=== PATIENT | female | born 1970 | race Hispanic/Latino ===

== ENCOUNTER 2016-12-30 09:41 | Outpatient (CLI) | payer OTHER ==
[~2016-12-30] VITALS: Ht 144.8 cm; Wt 75.7 kg
[~2016-12-30 09:41] MED LIST: CIPR500T78 PO; FERR-57 PO; IBUP-1773 PO; MDR10T PO; PANT40TA2 PO; SUCR1TAB36 PO
--- OUTSIDE RECORDS SUMMARY | 2016-12-30 09:45 | XMS REPORT | Continuity of Care Document ---
Author Author [facility] Organization [facility] Address Unknown Phone Unavailable Care Team Providers Care Harvesting Contractor Name Role Phone PCP Unavailable Source Comments Some departments are not documenting in the electronic medical record. If you do not see the information that you expected, contact Release of Information in the Health Information Management department at [phone] for further assistance in locating additional records.[facility] Active Allergies and Adverse Reactions Not on File Current Medications Not on file Active Problems Not on file Social History Tobacco Use Types Packs/Day Years Used Date Never Assessed Plan of Care Health Maintenance Due Date Last Done Comments Physical (Comprehensive) 1975 Exam Pertussis Vaccine 1979 Tetanus Vaccine 1985 Cervical Cancer Screening 1989 Breast Cancer Screening 2008 Influenza Vaccine 06/24/2016 Results from Last 3 Months Not on file
[2016-12-30 09:58] VITALS: BP 114/68
[2016-12-30] MEDS ORDERED: GABA-488 PO (09:58)
[2016-12-30] MEDS ORDERED: CHOL100045 PO (09:58)
[2016-12-30 10:29] LABS: BASOPHILS % (AUTO) 0 % (0-10); EOSINOPHILS # (AUTO) 0.1 10^3/uL (0.0-0.3); EOSINOPHILS % (AUTO) 2 % (0-10); LYMPHOCYTES # (AUTO) 2.1 X 10^3 (1.0-4.0); LYMPHOCYTES % (AUTO) 28 % (12-44); MEAN CORPUSCULAR HEMOGLOBIN 32 PG (25-34); MEAN CORPUSCULAR HGB CONC 33 G/DL (32-36); MEAN CORPUSCULAR VOLUME 95 FL (80-99); MONOCYTES # (AUTO) 0.6 X 10^3 (0.0-1.0); MONOCYTES % (AUTO) 8 % (0-12); NEUTROPHILS # (AUTO) 4.7 X 10^3 (1.8-7.8); NEUTROPHILS % (AUTO) 62 % (42-75); PLATELET COUNT 338 10^3/uL (130-400); RED BLOOD COUNT 4.33 10^6/uL (4.35-5.85); RED CELL DISTRIBUTION WIDTH 13.3 % (10.0-14.5); WHITE BLOOD COUNT 7.5 10^3/uL (4.3-11.0)
[2017-01-06] MEDS ORDERED: IBUP-1773 PO (11:04)
[2017-01-06] MEDS ORDERED: DOCU100C37 PO (11:04)
[2017-01-06] MEDS ORDERED: HYDR-3816 PO (11:04)
[2017-01-06] MEDS ORDERED: SIME80TA16 PO (11:04)
== END 2016-12-30 10:15 | disposition home or self-care (01) ==
LOC: PREOP 09:41
PROVIDERS: ATTEND Obstetrics & Gynecology
DX: Z01.812 Encounter for preprocedural laboratory examination (principal); Z11.2 Encounter for screening for other bacterial diseases; D25.9 Leiomyoma of uterus, unspecified
CPT/HCPCS: 36415; 85025; 86850; 86900; 86901; 87081

== ENCOUNTER 2017-01-06 06:58 | Day surgery (SDC) | payer OTHER ==
[~2017-01-06] VITALS: Ht 144.8 cm; Wt 75.7 kg
[~2017-01-06 06:58] MED LIST changes: +CHOL100045 PO; +GABA-488 PO
--- OUTSIDE RECORDS SUMMARY | 2017-01-06 07:02 | XMS REPORT | Continuity of Care Document ---
Author Author [facility] Organization [facility] Address Unknown Phone Unavailable Care Team Providers Care Capping Machine Operator Name Role Phone PCP Unavailable Source Comments Some departments are not documenting in the electronic medical record. If you do not see the information that you expected, contact Release of Information in the Health Information Management department at [phone] for further assistance in locating additional records.[facility] Active Allergies and Adverse Reactions Not [...]
--- OUTSIDE RECORDS SUMMARY | 2017-01-06 07:02 | XMS REPORT | Continuity of Care Document ---
Author Author [facility] Organization [facility] Address Unknown Phone Unavailable Care Team Providers Care Reciprocating Drill Operator Name Role Phone PCP Unavailable Source Comments Some departments are not documenting in the electronic medical record. If you do not see the information that you expected, contact Release of Information in the Health Information Management department at [phone] for further assistance in locating additional records.[facility] Active Allergies and Adverse Reactions Not [...]
[2017-01-06] MEDS ORDERED: ceFAZolin 2 GM/50 ML NS 50 ML IV ONE (07:20)
[2017-01-06] MEDS ORDERED: metroNIDAZOLE 500MG/100ML IVPB 100 ML ONE (07:20)
[2017-01-06] MEDS ORDERED: BUPIVACAINE 0.25% 30 ML (SENSORCAINE) VIAL ONE (07:28)
[2017-01-06] MEDS ORDERED: ceFAZolin 2 GM/NS 50 ML IV ONE (07:45)
[2017-01-06] MEDS ORDERED: metroNIDAZOLE 500 MG/100 ML IVPB (PRE-MIX) IV ONE (07:45)
[2017-01-06 08:00] VITALS: BP 104/70
--- NOTE | 2017-01-06 08:13 | Progress Note-Pre Operative ---
Pre-Operative Progress Note H&P Reviewed The H&P was reviewed, patient examined and no changes noted. Date H&P Reviewed: Jan 06, 2017 Time H&P Reviewed: 07:30 Pre-Operative Diagnosis: AUB, Fibroid uterus CLAUDE TOLBERT DO Jan 06, 2017 8:13 am
[2017-01-06] MEDS ORDERED: proPOfol 200 MG/20 ML (DIPRIVAN) VIAL IV ONE (08:45)
[2017-01-06] MEDS ORDERED: LIDOCAINE PF 2% 10 ML (XYLOCAINE) AMP INJ ONE (08:45)
[2017-01-06] MEDS ORDERED: SEVOFLURANE (ULTANE) 15 ML INHAL SOLN INH ONE ×7 (08:45→10:31)
[2017-01-06] MEDS ORDERED: ONDANSETRON 4 MG/2 ML (SDV) Z0FRAN IV ONE ×2 (08:45→11:00)
[2017-01-06] MEDS ORDERED: DEXAMETHASONE PF 10 MG/ML (DECADRON) VIAL INJ ONE (08:45)
[2017-01-06] MEDS ORDERED: fentaNYL INJECTION 250 MCG/5 ML AMP INJ ONE (08:45)
[2017-01-06] MEDS ORDERED: MIDAZOLAM 2 MG/2 ML (VERSED) VIAL INJ ONE (08:46)
[2017-01-06] MEDS ORDERED: LACTATED RINGERS 1,000 ML IV ONE ×3 (08:49→10:15)
[2017-01-06] MEDS: LACTATED RINGERS 1,000 ML IV PRN ×3 (08:53→10:38)
[2017-01-06] MEDS ORDERED: KETOROLAC 30 MG/ML VIAL IV ONE ×2 (10:15→12:27)
[2017-01-06] MEDS ORDERED: NEOSTIGMINE (BLOXIVERZ ) 1 MG/1ML 10 ML VIAL IV ONE (10:15)
[2017-01-06] MEDS ORDERED: GLYCOPYRROLATE 0.2 MG/ML (ROBINUL) 2 ML VIAL IJ ONE (10:15)
[2017-01-06] MEDS ORDERED: HYDROmorphone (DILAUDID) 2 MG/ML VIAL IV PRN (11:00)
[2017-01-06] MEDS ORDERED: ANTACID SUSP 30 ML UDC (MYLANTA) PO PRN (11:00)
[2017-01-06] MEDS ORDERED: DOCUSATE SODIUM 100 MG (COLACE) CAP PO PRN (11:00)
[2017-01-06] MEDS ORDERED: SIMETHICONE 80 MG (MYLICON) CHEW PO PRN (11:00)
[2017-01-06] MEDS ORDERED: KETOROLAC 30 MG/ML VIAL IV PRN (11:00)
[2017-01-06] MEDS ORDERED: ONDANSETRON 4 MG/2 ML (SDV) Z0FRAN IV PRN (11:00)
[2017-01-06] MEDS ORDERED: CHLORASEPTIC LOZENGE MM PRN (11:00)
[2017-01-06] MEDS ORDERED: morphine INJ 10 MG/ML 1ML (SYR OR VIAL) IV PRN (11:00)
[2017-01-06] MEDS ORDERED: ZOLPIDEM 5 MG (AMBIEN) TAB PO PRN (11:00)
--- NOTE | 2017-01-06 11:03 | Discharge Inst-Women's Service ---
Discharge Inst-Women's Serv Depart Medication/Instructions New, Converted or Re-Newed RX: RX on Chart Consults/Follow Up Additional Follow Up: Yes Orders/Referrals Dr. Dupree in 7-10 days and in 8 weeks Activity Activity: Activity as Tolerated Driving Instructions: No Driving for 1 Week NO SMOKING: NO SMOKING Nothing Inside Vagina: No Douching, No [place], No Tampons Diet Discharge Diet: No Restrictions Symptoms to Report to : Bleeding Excessive, Pain Increased, Fever Over 101 Degrees F, Vaginal Bleeding Increase, Questions/Concerns For Any Problems or Questions: Contact Your Physician Skin/Wound Care Infection Signs and Symptoms: Increased Redness, Foul Odor of Wound, Increased Drainage, Skin Itchy or Has a Rash, Increased Swelling, Temperature Above 101 F Operative Area Clean and Dry: Keep Incision Clean/Dry Stitches/Dylan/Dermabond: Dermabond, Care of Stitches Bathing Instructions: CLAUDE Freeman DO Jan 06, 2017 11:03
[2017-01-06] MEDS ORDERED: DOCU100C37 PO (11:04)
[2017-01-06] MEDS ORDERED: HYDR-3816 PO (11:04)
[2017-01-06] MEDS ORDERED: SIME80TA16 PO (11:04)
[2017-01-06] MEDS ORDERED: IBUP-1773 PO (11:04)
[2017-01-06] MEDS: fentaNYL INJECTION 100 MCG/2 ML AMP IV PRN ×2 (11:30→11:40)
[2017-01-06] MEDS ORDERED: fentaNYL INJECTION 100 MCG/2 ML AMP INJ ONE (11:38)
[2017-01-06 12:46] VITALS: BP 99/63
--- NOTE | 2017-01-06 13:39 | OPERATIVE REPORT ---
PROCEDURE PHYSICIAN: GOMEZ TOLBERT DATE OF PROCEDURE: 01/06/2017 PREOPERATIVE DIAGNOSIS: 1. 46-year-old female fibroid uterus. 2. Abnormal uterine bleeding. POSTOPERATIVE DIAGNOSIS: 1. 46-year-old female fibroid uterus. 2. Abnormal uterine bleeding. PROCEDURE: Robotic total laparoscopic hysterectomy with bilateral salpingo- salpingectomy. SURGEON: Dr. Gomez Tolbert. SCHOOL PHOTOGRAPH EDITOR: Olivia Cruz APRN ANESTHESIA: General endotracheal. ESTIMATED BLOOD LOSS: 100 mL. URINE OUTPUT: 200 mL, clear at the end of the procedure. FLUIDS: 2 liters of lactated ringer solution. FINDINGS: Slightly bulky enlarged and hyperemic appearing uterus. Grossly normal appearing bilateral fallopian tubes with hydatid cyst present in the mesosalpinx. Normal appearing ovaries bilaterally. SPECIMEN SENT: Uterus, bilateral fallopian tubes. INDICATIONS FOR THE PROCEDURE: This 46-year-old female is a patient that I had seen in the past and tried more conservative management for dealing with her chronic issues with heavy irregular bleeding. The patient has become frustrated with this and wishes to proceed with more definitive measures. I discussed with the patient, given her history and what we have tried before with her fibroid uterus, what we can do moving forward with as far as treatment. We discussed endometrial ablation, however the patient does not like the fact that this may not be successful due to the possibility of submucosal fibroids being present and distorting the uterine cavity. The failure rate is not acceptable to the patient. I also discussed with the patient proceeding with robotic hysterectomy. Risks of the procedure were discussed with the patient in detail including risk of bleeding, infection, damaging any surrounding structures, including not limited to the bowel, bladder, ureter, kidneys. After all of her questions were answered pertaining to this, she agreed this is the best route for her to go. We also do briefly mention some medical management options. However, these do not appeal to her. After all of her questions were answered as far as risk expectations, pre and postoperative expectations, the patient is scheduled for the procedure. In the preoperative area, the consent was obtained and patient was taken the operating room. OPERATIVE REPORT IN DETAIL: Once in the operating room, general anesthesia was found to be adequate. She was placed in dorsal lithotomy position, prepped in normal sterile fashion. Harper catheter is placed using sterile technique. A timeout is performed. I then placed a weighted speculum in the patient's vagina. A right angle retractor is used to visualize the cervix. It was grasped at the 12 o'clock position using long single tooth tenaculum. I then place an 0 Vicryl suture through the anterior lip of the cervix and removed my tenaculum and used the suture as my retraction point. I then gently sound the uterine cavity depth which was found to be 8 cm I then select an 8 cm CORAL uterine manipulator tip and a 3.5 cm colpotomy ring. Once this is placed in the endometrial cavity the balloon is deployed the colpotomy ring is advance around the vaginal fornix and excellent bimanual manipulation is noted on bimanual exam using the CORAL. A change of gloves is then performed and my attention was taken to the abdomen where supraumbilically I infiltrate this area using her 0.25% Marcaine and make an 8 mm incision and then directed Veress needle through this incision so retroperitoneal placement is confirmed using saline drop test. I proceed with insufflation using CO2 gas. An opening pressure of 8 mmHg is noted. I proceed to maximum pressure of 15 mmHg at which point I remove the Veress needle, introduce an 8 mm blunt da Crissy camera trocar. Once this is placed in the peritoneal cavity and I am able to confirm intraperitoneal placement using the da Crissy laparoscope. There is no evidence of damage upon my entry site. I then placed the patient in steep Trendelenburg and I am able to visualize the pelvic anatomy as described in my findings above. I place 2 lateral trocars, these are both 8 mm. The skin is infiltrated with 0.25% Marcaine. 8 mm incision made the knife and the trocars are advanced through the abdominal wall into the peritoneal cavity under direct visualization of the laparoscope. Once these are both in place, I bring in the da Crissy robot and dock it in the appropriate fashion. I place the monopolar hugh in the right hand and the da Crissy vessel sealer in the left hand. I perform the following dissection bilaterally using the robot as my dissection tool. Starting at the utero-ovarian ligament, I bipolar cauterize this using the vessel sealer and transect it using the vessel sealer. I then create a window in the mesosalpinx using the monopolar hugh and take this incision using the vessel sealer down the mesosalpinx, amputating away from its blood supply. I then grasp the round ligament, bipolar cauterize this and transect it using the vessel sealer. I then am able to grab the entire broad ligament, bipolar cauterizing and transecting it using the vessel sealer down to the level of the lower uterine segment at which point I separate the anterior posterior leaflets of the broad ligament. The anterior is taken around to the anterior vaginal fornix, posterior leaflet is taken around to the posterior vaginal fornix. This is done using the monopolar hugh. This allows me to skeletonize out the uterine vessels laterally. Once they are skeletonized, I bipolar cauterize and transect them using the da Crissy vessel sealer. I then have a circumferential view of my colpotomy ring. I perform a colpotomy at 12 o'clock position using monopolar hugh until the CORAL uterine manipulator colpotomy ring is visualized. I then take my incision circumferentially around the colpotomy ring using the monopolar hugh, amputating the cervix away from the vagina. The cervix, uterus, bilateral fallopian tubes are then removed through the vagina. I then proceed with closing the vaginal cuff. I close the lateral vaginal apices of the cuff using 2-0 Vicryl suture in a ivqbla-jz-veblz colposuspending fashion to the uterosacral ligament. Once both of these sutures are in place, I close the remainder middle portion of the cuff using 2-0 V-Loc in a running fashion. There is no active bleeding noted from any my dissection planes at that point. I undock the da Crissy robot and proceed with the remainder case laparoscopically. I copiously irrigate the pelvis using normal saline. Once again, no active bleeding is noted from any my dissection planes. I then place FloSeal hemostatic agent over my planes of dissection to ensure postoperative hemostasis. Once this is done, the patient is flattened out and 10 mL 0.25% Marcaine are introduced into the supraumbilical trocar site. I then remove the lateral trocars under direct visualization of the laparoscope. No active bleeding is noted from these. The supraumbilical trocar site is then removed after insufflation is released from the site. I then close the skin incisions using 4-0 Monocryl in an interrupted subcuticular stitches. Dermabond is applied to the incision. Band-Aids are placed over these. Harper catheter was left in place. The patient tolerated the procedure well and was taken to recovery area in stable condition. Lap and sponge counts correct at the end of the procedure, instrument count is correct as well. 2 grams of Ancef and 500 mg Flagyl given preoperatively for infection prophylaxis. Job ID: [id number] Dictated Date: 01/06/2017 11:44:50 Agricultural Agent Date: 01/06/2017 13:17:39 / aristides
[2017-01-06] MEDS: HYDROcodone/APAP 7.5 MG/325 MG (LORTAB, LORCET PLUS) TABLET PO PRN ×2 (14:07→21:01)
[2017-01-06 15:42] VITALS: BP 101/60
[2017-01-06] MEDS: LACTATED RINGERS 1,000 ML IV SCH (17:53)
[2017-01-06 20:00] VITALS: BP 93/53
[2017-01-06] MEDS ORDERED: IBUPROFEN 600 MG (MOTRIN) TAB PO ONE (20:54)
[2017-01-06] MEDS: IBUPROFEN 600 MG (MOTRIN) TAB PO PRN (21:01)
[2017-01-07] VITALS: BP 105/61
[2017-01-07] MEDS: IBUPROFEN 600 MG (MOTRIN) TAB PO PRN ×2 (02:38→07:57)
[2017-01-07] MEDS: LACTATED RINGERS 1,000 ML IV SCH ×2 (03:00→03:01)
[2017-01-07 04:15] VITALS: BP 77/47
[2017-01-07 07:59] VITALS: BP 93/54
--- NOTE | 2017-01-07 08:01 | Progress Note-Standard ---
Standard Progress Note Progress Notes/Assess & Plan Date Seen 01/07/17 Assess & Plan/Chief Complaint POD#1 Pt denies complaints Has ambulated Voided Pain controlled, minimal abdominal tenderness Ate some last night Vital Sign - Last 12Hours 01/07/17 01/07/17 00:00 04:15 Temp 98.8 98.2 Pulse 84 62 Resp 16 17 B/P 105/61 77/47 Pulse Ox 95 100 O2 Delivery Room Air Room Air Intake and Output 01/07/17 00:00 Intake Total 1930 ml Output Total 900 ml Balance 1030 ml Gen NAD Abd soft nttp lap sites c/d/i covered with dermabond no new labs A/P 46 y/o s/p RATLH/BSO by Dr. Dupree POD#1 Routine post-op care May d/c once meeting all criteria Slightly hypotensive but this was during sleeping - pulse normal D/c as per Dr. Dupree's instructions and f/u as scheduled PHILIP SILVA MD Jan 07, 2017 08:01
[2017-01-07] MEDS ORDERED: FLU TRIvalent (5 YOA+) 2016-17 (AFLURIA) 0.5 ML IM ONE ×2 (09:26→10:00)
--- NOTE | 2017-01-07 10:28 | Anesthesia-General Post-Op ---
General Patient Condition Mental Status/LOC: Same as Preop Cardiovascular: Satisfactory Nausea/Vomiting: Absent Respiratory: Satisfactory Pain: Controlled Complications: Absent Post Op Complications Complications None Follow Up Care/Instructions Patient Instructions None needed. Anesthesia/Patient Condition Patient Condition Patient is doing well, no complaints, stable vital signs, no apparent adverse anesthesia problems. No complications reported per nursing. ONELIA ROSS CRNA Jan 07, 2017 10:28
== END 2017-01-07 11:34 | disposition home or self-care (01) ==
LOC: SDC 06:58 → WS 12:30 → 3RD 15:36 → SDC 01-07 11:34
PROVIDERS: ATTEND Obstetrics & Gynecology
DX: N93.9 Abnormal uterine and vaginal bleeding, unspecified (principal); N83.8 Other noninflammatory disorders of ovary, fallopian tube and broad ligament; D25.1 Intramural leiomyoma of uterus; D25.2 Subserosal leiomyoma of uterus; N70.11 Chronic salpingitis; Z23 Encounter for immunization
CPT/HCPCS: 84703; 88307; 90471; 94664; 96361; 96375

== ENCOUNTER → 2017-05-19 | Outpatient (CLI) | payer SELFPAY ==
[~2017-05-19] VITALS: Ht 144.8 cm; Wt 76.2 kg
[~2017-05-19] MED LIST changes: +CATHETER FLUSH 10 ML SYR IV PRN; +DOCU100C37 PO; +HYDR-3816 PO; +REGADENOSON 0.4 MG/5 ML SYR (LEXISCAN) IV ONE; +SIME80TA16 PO
[2017-05-19 09:22] VITALS: BP 120/87
[2017-05-19 09:29] VITALS: BP 126/80
[2017-05-19 09:30] VITALS: BP 123/80
[2017-05-19 09:32] VITALS: BP 123/80
== END ==
LOC: CARD 07:50
PROVIDERS: ATTEND Nurse Practitioner Family
DX: E78.5 Hyperlipidemia, unspecified (principal)
CPT/HCPCS: 78452; 93017

== ENCOUNTER → 2017-05-23 | Outpatient (CLI) | payer OTHER ==
[~2017-05-23] MED LIST changes: -CATHETER FLUSH 10 ML SYR IV PRN; -REGADENOSON 0.4 MG/5 ML SYR (LEXISCAN) IV ONE
== END ==
LOC: CARD 12:47
PROVIDERS: ATTEND Nurse Practitioner Family
DX: E78.5 Hyperlipidemia, unspecified (principal)
CPT/HCPCS: 93306

== ENCOUNTER 2018-03-05 08:18 | Emergency (ER) | payer SELFPAY ==
[~2018-03-05] VITALS: Ht 144.8 cm; Wt 71.7 kg
[~2018-03-05 08:18] MED LIST changes: +HYDR-34 PO; -HYDR-3816 PO
--- OUTSIDE RECORDS SUMMARY | 2018-03-05 08:25 | XMS REPORT | Clinical Summary ---
Author Author [facility] Organization [facility] Address Unknown Phone Unavailable Care Team Providers Care Chefs Name Role Phone PCP Unavailable Source Comments Some departments are not documenting in the electronic medical record. If you do not see the information that you expected, contact Release of Information in the Health Information Management department at [phone] for further assistance in locating additional records.[facility] Allergies Not on File Current Medications Not on file Active Problems Not on file Social History Tobacco Use Types Packs/Day Years Used Date Never Assessed Sex Assigned at Date Recorded Not on file Last Filed Vital Signs Not on file Plan of Treatment Health Maintenance Due Date Last Done Comments PHYSICAL (COMPREHENSIVE) 1975 EXAM PERTUSSIS VACCINE 1979 HIV SCREENING 1983 TETANUS VACCINE 1985 CERVICAL CANCER SCREENING 1998 BREAST CANCER SCREENING 2008 INFLUENZA VACCINE 07/24/2018 Results Not on filefrom Last 3 Months
[2018-03-05] MEDS ORDERED: methylPREDNISolone 80 MG/ML (DEPO MEDROL) VIAL IJ ONE (08:45)
[2018-03-05] MEDS ORDERED: KETOROLAC 30 MG/ML VIAL IM ONE (08:45)
[2018-03-05] MEDS ORDERED: BUPIVACAINE 0.5% 30 ML (SENSORCAINE) VIAL INJ ONE (08:45)
[2018-03-05] MEDS ORDERED: LIDOCAINE 1% INJ 50 ML (XYLOCAINE) VIAL IJ ONE (08:45)
--- NOTE | 2018-03-05 08:51 | ED Back Pain ---
General Stated Complaint: BACK PAIN, L LEG PAIN Source of Information: Patient Exam Limitations: Language Barrier (Bulgarian language line used) History of Present Illness Date Seen by Provider: March 05, 2018 Time Seen by Provider: 08:36 Initial Comments The patient presents to the ER by private conveyance with her significant other and a chief complaint of left lower back pain radiating down her left buttock and thigh posteriorly. This pain is starting about 2-3 days ago progressively worsening. She has not done anything that aggravate her that she is aware of and denies any history of trauma. She denies any fevers or chills, cough, shortness of breath, dysuria, discharge. She's not having any saddle anesthesia , incontinence of bowel or bladder. She does have a history of diabetes but does not take any medications for because she was told that her A1c was so low. She is not using routine NSAIDs but she is using some aqws-usp-arqrfag pain reliever Tylenol. Allergies and Home Medications Allergies Coded Allergies: No Known Drug Allergies (Verified , 01/06/17) Home Medications Cholecalciferol (Vitamin D3) 1,000 Unit Tablet, 1,000 UNIT PO DAILY, (Reported) Docusate Sodium 100 Mg Capsule, 100 MG PO BID PRN for CONSTIPATION Prescribed by: CLAUDE TOLBERT on 01/06/17 1104 Hydrocodone Bit/Acetaminophen 1 Each Tablet, 1-2 EA PO Q6H PRN for PAIN Prescribed by: CLAUDE TOLBERT on 01/06/17 1104 Ibuprofen 600 Mg Tablet, 600 MG PO Q6H PRN for PAIN Prescribed by: CLAUDE TOLBERT on 01/06/17 1104 Simethicone 80 Mg Tab.chew, 40 MG PO TID PRN for INDIGESTION Prescribed by: CLAUDE TOLBERT on 01/06/17 1104 Patient Home Medication List Home Medication List Reviewed: Yes Constitutional: No chills, No diaphoresis EENTM: No hearing loss, No ear pain Respiratory: No cough, No short of breath Cardiovascular: No chest pain, No edema Gastrointestinal: No abdominal pain, No constipation, No diarrhea, No nausea, No vomiting Genitourinary: No discharge, No dysuria : No (hysterectomy) Control/STD Prophylaxis: Other (hysto) Musculoskeletal: see HPI, back pain Skin: No pruritus, No rash Psychiatric/Neurological: Denies Headache, Denies Numbness; Paresthesia (left thigh) Past Wzjxfcl-Lcvnmh-Pjojoi Hx Patient Social History Recent Foreign Travel: No Contact w/Someone Who Travel: No Recent Hopitalizations: No Immunizations Up To Date Tetanus Booster (TDap): Unknown Date of Influenza Vaccine: Jan 07, 2017 Seasonal Allergies Seasonal Allergies: No Past Medical History Reproductive Disorders: Yes (AUB) Loss of Vision: Denies Hearing Impairment: Denies Physical Exam Vital Signs Capillary Refill : General Appearance: No Apparent Distress, WD/WN HEENT: PERRL/EOMI, Pharynx Normal Neck: Full Range of Motion, Normal Inspection, Non Tender Cardiovascular: Regular Rate, Rhythm, No Edema, Normal Peripheral Pulses Respiratory: Chest Non Tender, Lungs Clear, Normal Breath Sounds, No Accessory Muscle Use, No Respiratory Distress Gastrointestinal: Non Tender, Soft Back: Normal Inspection, No CVA Tenderness, Vertebral Tenderness (lumbar midline and left lateral) Extremity: Normal Capillary Refill, Normal Inspection, Normal Range of Motion, Non Tender, No Calf Tenderness Neurologic/Psychiatric: Alert, Oriented x3, No Motor/Sensory Deficits Procedures/Interventions Progress Risk benefits and alternatives were explained using the language line. Patient accepted the risks and we proceeded with a L5-S1 left facet joint injection of 80 mg Depo-Medrol, 4 mL of half percent Marcaine without epinephrine, 1% lidocaine without epinephrine 4 mL. Skin was prepared using Betadine swab sticks and chlorhexidine soap water. Using a 22-gauge 1-1/2 inch needle the medicine needle was inserted and withdrawn and no blood came back. Then injected the medicine into the joint and around it in a block fashion. Patient tolerated procedure well. A Band-Aid was placed after cleaning the wound with chlorhexidine. Progress/Results/Core Measures Results/Orders My Orders Orders - GUILLERMO PERERA Ketorolac Injection (Toradol Injection) (03/05/18 08:45) Methylprednisolone Acetate Inj (Depo-Med (03/05/18 08:45) Lidocaine 1% Inj 50 Ml (Xylocaine 1% Inj (03/05/18 08:45) Bupivacaine 0.5% Injection (Sensorcaine (03/05/18 08:45) Lidocaine 1% Inj 20 Ml (Xylocaine 1% Inj (03/05/18 09:03) Progress Progress Note : Time: 08:49 Progress Note . Counseled her on appropriate treatment and will give her an injection after discussing the risks benefits and alternatives. Reasonable for her to have the Depo-Medrol given her well controlled diabetes. Departure Impression Primary Impression: Lumbago with sciatica, left side Qualified Codes: M54.42 - Lumbago with sciatica, left side Disposition: 01 HOME, SELF-CARE Condition: Improved Departure-Patient Inst. Decision time for Depature: 09:38 Referrals: [facility] (PCP/Family) Primary Care Physician Patient Instructions: Low Back Pain (DC) Add. 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 If you're having right through pain can take 1000 mg of Tylenol every 8 hours as needed. You can also use heating pads and ice alternated over your back as well as creams such as icy hot, Biofreeze etc. If you're not feeling some relief by 2 weeks you should follow-up with your primary care provider to see what else can be done such as physical therapy. You can also follow up with a chiropractor. Stay active. Scripts Naproxen (Naprosyn) 500 Mg Tablet 500 MG PO BID for 14 Days, #30 TAB 0 Refills Prov: GUILLERMO PERERA 03/05/18 Work/School Note: Work Release Form Date Seen in the Emergency Department: March 05, 2018 Return to Work: March 06, 2018 Restrictions: No Restrictions Copy Copies To 1: JEANIE DIAZ TITUS J March 05, 2018 08:51
[2018-03-05] MEDS ORDERED: LIDOCAINE 1% INJ 20 ML 20 ML VIAL ONE (09:03)
[2018-03-05] MEDS ORDERED: NAPR-1071 PO (09:40)
[2018-03-05 11:01] VITALS: BP 122/75
== END 2018-03-05 10:23 | disposition home or self-care (01) ==
LOC: EDUNIT# 08:18 → ER 08:20
DX: M54.42 Lumbago with sciatica, left side (principal); E11.9 Type 2 diabetes mellitus without complications; Z91.14 Patient's other noncompliance with medication regimen
CPT/HCPCS: 96372; 99284